=== PATIENT | female | born 1940 | race Caucasian/White ===

== ENCOUNTER → 2017-08-15 | Outpatient (CLI) | payer OTHER ==
[~2017-08-15] MED LIST: ACET-1757 PO; AMLO10TA2 PO; ASPI-496 PO; ATOR10TA9 PO; BISA10SU2 PR; CANA100T PO; CARV25TA12 PO; DOCU-131 PO; ENOX40SY4 SQ; EXEN2VIA SQ; GLIM2TAB2 PO; HYDR-3237 PO; INSU100V11 SQ-INSULIN; LOSA100T6 PO; METF10002 PO; METH5TAB6 PO; POLY17PO5 PO
== END | disposition home or self-care (01) ==
LOC: CVU 12:17
PROVIDERS: ATTEND Internal Medicine Cardiovascular Disease
DX: I65.23 Occlusion and stenosis of bilateral carotid arteries (principal); I87.2 Venous insufficiency (chronic) (peripheral); I10 Essential (primary) hypertension; E11.9 Type 2 diabetes mellitus without complications
CPT/HCPCS: 93880; 93970

== ENCOUNTER → 2019-08-17 | Outpatient (CLI) | payer OTHER ==
[~2019-08-17] MED LIST changes: +ABAL1.56 INJ; -ACET-1757 PO; +ACET-2065 PO; +ALPH300C PO; -AMLO10TA2 PO; +AMLO10TA8 PO; +ATOR20TA37 PO; -BISA10SU2 PR; +BISA10SU4 PR; +CHLO25TA PO; +CILO50TA PO; +DAPA10TA PO; -GLIM2TAB2 PO; +GLIM2TAB3 PO; +LOSA100T14 PO; -LOSA100T6 PO; +METF500T17 PO; +SEMA0.25 INJ
[2019-08-17 11:18] LABS: BASOPHILS % (AUTO) 0 % (0-1); EOSINOPHILS # (AUTO) 0.12 x10^3/uL (0-0.4); EOSINOPHILS % (AUTO) 2 % (1-7); LYMPHOCYTES # (AUTO) 1.22 x10^3/uL (1-3.4); LYMPHOCYTES % (AUTO) 17 % (22-44); MD NO; MEAN CORPUSCULAR HEMOGLOBIN 27.8 pg (27.0-34.8); MEAN CORPUSCULAR HGB CONC 32.6 g/dL (32.4-35.8); MEAN CORPUSCULAR VOLUME 85.3 fL (80-100); MEAN PLATELET VOLUME 7.8 fL (7.4-10.4); MONOCYTES # (AUTO) 0.24 x10^3/uL (0.2-0.8); MONOCYTES % (AUTO) 3 % (2-9); NEUTROPHILS # (AUTO) 5.55 x10^3/uL (1.8-6.8); NEUTROPHILS % (AUTO) 78 % (42-75); PLATELET COUNT 243 x10^3/uL (130-400); RED BLOOD COUNT 4.23 x10^6/uL (3.82-5.3); RED CELL DISTRIBUTION WIDTH 17.1 % (9.6-15.2)
[2019-08-17 11:24] LABS: MICROSCOPIC AUTO
[2019-08-17 11:30] LABS: ALANINE AMINOTRANSFERASE 22 U/L (12-78); ANION GAP 8 mmol/L (5-15); CALCIUM 9.2 mg/dL (8.5-10.1); CHLORIDE 103 mmol/L (98-107); CREATININE 0.66 mg/dL (0.55-1.02)
[2019-08-17 11:32] LABS: ALKALINE PHOSPHATASE 53 U/L (45-117); BILIRUBIN,TOTAL 0.5 mg/dL (0.2-1.0); TOTAL PROTEIN 8.1 g/dL (6.4-8.2)
[2019-08-17 11:36] LABS: INTERNATIONAL NORMALIZED RATIO 1.11 (0.93-1.1); PROTHROMBIN TIME 11.6 Seconds (9.6-11.5)
[2019-08-17 11:38] LABS: CULTURE INDICATED? YES
== END | disposition home or self-care (01) ==
LOC: STAR 10:04
PROVIDERS: ATTEND Neurological Surgery
DX: Z01.818 Encounter for other preprocedural examination (principal); M48.062 Spinal stenosis, lumbar region with neurogenic claudication; M43.06 Spondylolysis, lumbar region; M54.16 Radiculopathy, lumbar region; M54.5 Low back pain; E11.9 Type 2 diabetes mellitus without complications
CPT/HCPCS: 36415; 71046; 80053; 81001; 85025; 85610; 85730; 87086; 87147; 93005

== ENCOUNTER → 2019-08-20 | Outpatient (CLI) | payer OTHER ==
[~2019-08-20] MED LIST changes: +REGADENOSON 0.4 MG/5 ML SYRINGE ONE
== END | disposition home or self-care (01) ==
LOC: CFH 07:37
PROVIDERS: ATTEND Internal Medicine Cardiovascular Disease
DX: Z01.810 Encounter for preprocedural cardiovascular examination (principal); I10 Essential (primary) hypertension; E11.9 Type 2 diabetes mellitus without complications; R94.31 Abnormal electrocardiogram [ECG] [EKG]
CPT/HCPCS: 78452; 93017; A9502; J2785

== ENCOUNTER 2019-12-12 08:53 | Inpatient (IN) | payer MEDICARE, OTHER ==
[~2019-12-12] VITALS: Ht 165.1 cm; Wt 69.5 kg
[~2019-12-12 08:53] MED LIST changes: -ABAL1.56 INJ; +ABAL1.56 SC; +ALPR0.25 PO; +AMOX1TAB64 PO; +ASPI81TA45 PO; +ATOR-2 PO; +BISA10EN PR; +CALC500T29 PO; +CARV12.5 PO; +CLON0.1T12 PO; +CLOP75TA PO; +CLOP75TA52 PO; +DIPH50DI3 IVPush; +FAMO10TA77 PO; +FURO20TA3 PO; +GLIM2TAB PO; -GLIM2TAB3 PO; +GLIM2TAB7 PO; +HYDR-3240 PO; +INSU100V5 SQ-INSULIN; +ISOS30TA8 PO; +MAG355OR14 PO; +MAGN400O7 PO; +METH750T2 PO; +ONDA4DIS4 IVPush; +ONDA4TAB7 IVPush; -REGADENOSON 0.4 MG/5 ML SYRINGE ONE; -SEMA0.25 INJ; +SEMA0.25 SC; +SENN-92 PO; +ZOLP5TAB PO
--- NOTE | 2019-12-12 09:05 | NUR ---
PT BROUGHT IN BY MICHELE FROM HOME WITH CHIEF COMPLAINT OF SOB, WEAKNESS, COUGH FOR 2 WEEKS. PT DENIES CP, N/V, FEVER. PATIENT IS HARD OF HEARING BUT ALERT, ORIENTED, WARM AND DRY. MICHELE FOUND PT ROOM AIR SPO2 81%, PLACED ON 4 L NC. PPE IN PLACE
[2019-12-12] MEDS ORDERED: DAPA10TA PO (09:21)
[2019-12-12] MEDS ORDERED: SODIUM CHLORIDE FLUSH 10ML SYR IVF ONE ×2 (09:30→11:00)
[2019-12-12 09:54] LABS: BASOPHILS % (AUTO) 0 % (0-1); EOSINOPHILS % (AUTO) 0 % (1-7); LYMPHOCYTES # (AUTO) 0.29 x10^3/uL (1-3.4); LYMPHOCYTES % (AUTO) 4 % (22-44); MD NO; MEAN CORPUSCULAR HEMOGLOBIN 23.8 pg (27.0-34.8); MEAN CORPUSCULAR HGB CONC 31.8 g/dL (32.4-35.8); MEAN CORPUSCULAR VOLUME 74.9 fL (80-100); MEAN PLATELET VOLUME 8.8 fL (7.4-10.4); MONOCYTES # (AUTO) 0.39 x10^3/uL (0.2-0.8); MONOCYTES % (AUTO) 5 % (2-9); NEUTROPHILS # (AUTO) 6.77 x10^3/uL (1.8-6.8); NEUTROPHILS % (AUTO) 91 % (42-75); PLATELET COUNT 285 x10^3/uL (130-400); RED BLOOD COUNT 4.37 x10^6/uL (3.82-5.3); RED CELL DISTRIBUTION WIDTH 21.4 % (9.6-15.2)
[2019-12-12 10:04] LABS: ANION GAP 18 mmol/L (5-15); CALCIUM 8.3 mg/dL (8.5-10.1); CHLORIDE 98 mmol/L (98-107); CREATININE 1.24 mg/dL (0.55-1.02)
--- NOTE | 2019-12-12 10:07 | NUR ---
PT RESTING IN BED, NO COMPLAINTS OF DISCOMFORT. CALL LIGHT IN REACH
--- NOTE | 2019-12-12 10:42 | NUR ---
[id number] dr rasheed spoke with dr guerrero
[2019-12-12] MEDS ORDERED: SODIUM CHLORIDE 0.9% 1,000ML IVBOLUS ONE (11:00)
--- NOTE | 2019-12-12 11:06 | NUR ---
PT TO IMAGING
[2019-12-12] MEDS ORDERED: OMNIPAQUE 350 MG/ML, 100ML BOTTLE ONE (11:16)
--- NOTE | 2019-12-12 11:23 | NUR ---
ASSISTED AMBULATION TO BATHROOM
--- NOTE | 2019-12-12 11:35 | NUR ---
ATTEMPT TO CALL REPORT, RN NOT AVAILABLE
--- NOTE | 2019-12-12 11:46 | NUR ---
[facility] AT BEDSIDE
[2019-12-12 11:53] LABS: % IRON SATURATION 10 % (20-55); IRON LEVEL 32 mcg/dL (50-170); TOTAL IRON BINDING CAPACITY 310 mcg/dL (250-450)
--- NOTE | 2019-12-12 12:29 | NUR ---
REPORT CALLED TO ANA VEGA
[2019-12-12] MEDS: SODIUM CHLORIDE 0.9% 1,000 ML IV SCH (12:34)
[2019-12-12] MEDS ORDERED: ONDANSETRON 2MG/ML, 2ML IVPush PRN (13:00)
[2019-12-12] MEDS ORDERED: ACETAMINOPHEN 325 MG TABLET PO PRN (13:00)
[2019-12-12] MEDS: Enoxaparin 1 mg/kg protocol SQ SCH (13:00)
[2019-12-12] MEDS: INSULIN LISPRO 100 UNITS/ML, PEN SQ-INSULIN SCH ×3 (13:00→23:49)
[2019-12-12] MEDS ORDERED: morphine SULFATE 10 MG/ML, 1ML IVPush PRN (13:00)
[2019-12-12] MEDS ORDERED: ONDANSETRON ODT 4 MG PO PRN (13:00)
[2019-12-12] MEDS: DOXYCYCLINE 100MG TABLET PO SCH ×2 (13:24→20:12)
[2019-12-12] MEDS: CLOPIDOGREL 75 MG TABLET PO SCH (13:24)
[2019-12-12] MEDS: ASPIRIN 81 MG TABLET EC PO SCH (13:24)
[2019-12-12] MEDS: ISOSORBIDE MONONITRATE ER 30 MG TABLET PO SCH (13:24)
[2019-12-12] MEDS: ENOXAPARIN 60 MG/0.6 ML SQ SCH (13:24)
[2019-12-12 13:26] VITALS: BP 105/71
[2019-12-12 13:29] VITALS: BP 105/71
[2019-12-12] MEDS: CEFTRIAXONE PMX 1GM/50ML 50 ML IV SCH (13:52)
[2019-12-12 20:06] VITALS: BP 86/50
[2019-12-12] MEDS: ATORVASTATIN 20 MG TABLET PO SCH (20:12)
[2019-12-13] MEDS: Enoxaparin 1 mg/kg protocol SQ SCH ×2 (01:00→13:13)
[2019-12-13 01:12] VITALS: BP 113/67
[2019-12-13] MEDS: ENOXAPARIN 60 MG/0.6 ML SQ SCH ×2 (01:17→13:59)
[2019-12-13] MEDS: SODIUM CHLORIDE 0.9% 1,000 ML IV SCH (02:31)
[2019-12-13] MEDS: ASPIRIN 81 MG TABLET EC PO SCH (05:41)
[2019-12-13 05:48] LABS: BASOPHILS % (AUTO) 0 % (0-1); EOSINOPHILS % (AUTO) 0 % (1-7); LYMPHOCYTES # (AUTO) 0.84 x10^3/uL (1-3.4); LYMPHOCYTES % (AUTO) 9 % (22-44); MD NO; MEAN CORPUSCULAR HEMOGLOBIN 23.5 pg (27.0-34.8); MEAN CORPUSCULAR HGB CONC 31.6 g/dL (32.4-35.8); MEAN CORPUSCULAR VOLUME 74.3 fL (80-100); MEAN PLATELET VOLUME 9.1 fL (7.4-10.4); MONOCYTES # (AUTO) 0.72 x10^3/uL (0.2-0.8); MONOCYTES % (AUTO) 7 % (2-9); NEUTROPHILS # (AUTO) 8.28 x10^3/uL (1.8-6.8); NEUTROPHILS % (AUTO) 84 % (42-75); PLATELET COUNT 280 x10^3/uL (130-400); RED BLOOD COUNT 4.01 x10^6/uL (3.82-5.3)
[2019-12-13] MEDS: INSULIN LISPRO 100 UNITS/ML, PEN SQ-INSULIN SCH ×4 (05:52→21:18)
[2019-12-13 05:59] LABS: ALBUMIN 2.6 g/dL (3.4-5.0); ANION GAP 17 mmol/L (5-15); CALCIUM 7.8 mg/dL (8.5-10.1); CHLORIDE 117 mmol/L (98-107)
[2019-12-13 06:03] LABS: ALANINE AMINOTRANSFERASE 381 U/L (12-78); ALKALINE PHOSPHATASE 70 U/L (45-117); BILIRUBIN,TOTAL 0.6 mg/dL (0.2-1.0); TOTAL PROTEIN 6.6 g/dL (6.4-8.2)
[2019-12-13 07:17] VITALS: BP 111/71
[2019-12-13] MEDS: CLOPIDOGREL 75 MG TABLET PO SCH (09:50)
[2019-12-13] MEDS: DOXYCYCLINE 100MG TABLET PO SCH ×2 (09:50→20:01)
[2019-12-13] MEDS: IRON SUCROSE COMPLEX 100MG/5ML IV SCH (09:50)
[2019-12-13] MEDS: ISOSORBIDE MONONITRATE ER 30 MG TABLET PO SCH (09:50)
[2019-12-13 12:29] VITALS: BP 132/69
[2019-12-13] MEDS: CEFTRIAXONE PMX 1GM/50ML 50 ML IV SCH (14:00)
[2019-12-13] MEDS ORDERED: FUROSEMIDE 40 MG/4 ML IV ONE (15:30)
[2019-12-13 19:47] VITALS: BP 100/63
[2019-12-13] MEDS: ATORVASTATIN 20 MG TABLET PO SCH (20:00)
[2019-12-13] MEDS: GUAIFENESIN ER 600 MG TABLET PO SCH (20:01)
[2019-12-13] MEDS: INSULIN GLARGINE 100 UNITS/ML, PEN SQ-INSULIN SCH (21:19)
[2019-12-14 02:41] VITALS: BP 98/62
[2019-12-14] MEDS: ENOXAPARIN 60 MG/0.6 ML SQ SCH (02:45)
[2019-12-14] MEDS: INSULIN LISPRO 100 UNITS/ML, PEN SQ-INSULIN SCH ×4 (02:50→20:43)
[2019-12-14 05:50] LABS: BASOPHILS # (AUTO) 0.01 x10^3/uL (0-0.1); BASOPHILS % (AUTO) 0 % (0-1); EOSINOPHILS # (AUTO) 0.01 x10^3/uL (0-0.4); EOSINOPHILS % (AUTO) 0 % (1-7); LYMPHOCYTES # (AUTO) 1.26 x10^3/uL (1-3.4); LYMPHOCYTES % (AUTO) 12 % (22-44); MD NO; MEAN CORPUSCULAR HEMOGLOBIN 23.7 pg (27.0-34.8); MEAN CORPUSCULAR HGB CONC 31.8 g/dL (32.4-35.8); MEAN CORPUSCULAR VOLUME 74.4 fL (80-100); MEAN PLATELET VOLUME 8.9 fL (7.4-10.4); MONOCYTES # (AUTO) 0.86 x10^3/uL (0.2-0.8); MONOCYTES % (AUTO) 8 % (2-9); NEUTROPHILS # (AUTO) 8.29 x10^3/uL (1.8-6.8); NEUTROPHILS % (AUTO) 80 % (42-75); PLATELET COUNT 284 x10^3/uL (130-400); RED BLOOD COUNT 3.92 x10^6/uL (3.82-5.3); RED CELL DISTRIBUTION WIDTH 21.5 % (9.6-15.2)
[2019-12-14 05:56] LABS: ANION GAP 12 mmol/L (5-15); CALCIUM 7.8 mg/dL (8.5-10.1); CHLORIDE 105 mmol/L (98-107)
[2019-12-14 05:58] LABS: CREATININE 1.13 mg/dL (0.55-1.02)
[2019-12-14 08:35] VITALS: BP 103/63
[2019-12-14] MEDS: CLOPIDOGREL 75 MG TABLET PO SCH (08:57)
[2019-12-14] MEDS: DOXYCYCLINE 100MG TABLET PO SCH ×2 (08:57→20:42)
[2019-12-14] MEDS: GUAIFENESIN ER 600 MG TABLET PO SCH ×2 (08:57→20:42)
[2019-12-14] MEDS: ISOSORBIDE MONONITRATE ER 30 MG TABLET PO SCH (08:58)
[2019-12-14] MEDS: IRON SUCROSE COMPLEX 100MG/5ML IV SCH (08:58)
[2019-12-14] MEDS: ASPIRIN 81 MG TABLET EC PO SCH (09:05)
[2019-12-14] MEDS ORDERED: POTASSIUM CHLORIDE 20 MEQ TAB.ER.PRT PO ONE (13:30)
[2019-12-14 13:59] VITALS: BP 98/60
[2019-12-14] MEDS: CEFTRIAXONE PMX 1GM/50ML 50 ML IV SCH (14:24)
[2019-12-14 18:51] VITALS: BP 114/67
[2019-12-14] MEDS: ATORVASTATIN 20 MG TABLET PO SCH (20:42)
[2019-12-14] MEDS: INSULIN GLARGINE 100 UNITS/ML, PEN SQ-INSULIN SCH (20:43)
[2019-12-15 02:52] VITALS: BP 127/79
[2019-12-15 05:37] LABS: BASOPHILS # (AUTO) 0.01 x10^3/uL (0-0.1); BASOPHILS % (AUTO) 0 % (0-1); EOSINOPHILS # (AUTO) 0.03 x10^3/uL (0-0.4); EOSINOPHILS % (AUTO) 0 % (1-7); LYMPHOCYTES # (AUTO) 0.98 x10^3/uL (1-3.4); LYMPHOCYTES % (AUTO) 12 % (22-44); MD NO; MEAN CORPUSCULAR HEMOGLOBIN 23.7 pg (27.0-34.8); MEAN CORPUSCULAR HGB CONC 31.8 g/dL (32.4-35.8); MEAN CORPUSCULAR VOLUME 74.4 fL (80-100); MEAN PLATELET VOLUME 8.8 fL (7.4-10.4); MONOCYTES % (AUTO) 5 % (2-9); NEUTROPHILS # (AUTO) 7.14 x10^3/uL (1.8-6.8); NEUTROPHILS % (AUTO) 83 % (42-75); PLATELET COUNT 296 x10^3/uL (130-400); RED BLOOD COUNT 4.09 x10^6/uL (3.82-5.3)
[2019-12-15 05:52] LABS: ANION GAP 9 mmol/L (5-15); CALCIUM 8.1 mg/dL (8.5-10.1); CHLORIDE 105 mmol/L (98-107)
[2019-12-15 05:53] LABS: CREATININE 0.86 mg/dL (0.55-1.02)
[2019-12-15] MEDS: ASPIRIN 81 MG TABLET EC PO SCH (06:13)
[2019-12-15 07:35] VITALS: BP 136/84
[2019-12-15] MEDS: ENOXAPARIN 40 MG/0.4 ML SQ SCH (08:38)
[2019-12-15] MEDS: INSULIN LISPRO 100 UNITS/ML, PEN SQ-INSULIN SCH ×4 (08:39→21:31)
[2019-12-15] MEDS: CLOPIDOGREL 75 MG TABLET PO SCH (08:40)
[2019-12-15] MEDS: IRON SUCROSE COMPLEX 100MG/5ML IV SCH (08:40)
[2019-12-15] MEDS: GUAIFENESIN ER 600 MG TABLET PO SCH ×2 (08:40→21:29)
[2019-12-15] MEDS: DOXYCYCLINE 100MG TABLET PO SCH ×2 (08:40→21:29)
[2019-12-15] MEDS: ISOSORBIDE MONONITRATE ER 30 MG TABLET PO SCH (08:41)
[2019-12-15] MEDS ORDERED: GLIMEPIRIDE 1 MG TABLET PO SCH (09:30)
[2019-12-15] MEDS: GLIMEPIRIDE 1 MG TABLET PO SCH (11:43)
[2019-12-15 12:29] VITALS: BP 119/73
[2019-12-15] MEDS: CEFTRIAXONE PMX 1GM/50ML 50 ML IV SCH (14:49)
[2019-12-15 19:52] VITALS: BP 124/79
[2019-12-15] MEDS ORDERED: INSULIN GLARGINE 100 UNITS/ML, PEN SQ-INSULIN SCH (21:00)
[2019-12-15] MEDS: CARVEDILOL 12.5 MG TABLET PO SCH (21:29)
[2019-12-15] MEDS: DOCUSATE 100 MG CAPSULE PO PRN (21:29)
[2019-12-15] MEDS: ATORVASTATIN 20 MG TABLET PO SCH (21:29)
[2019-12-16 00:16] VITALS: BP 108/68
[2019-12-16 05:38] LABS: BASOPHILS # (AUTO) 0.05 x10^3/uL (0-0.1); BASOPHILS % (AUTO) 1 % (0-1); EOSINOPHILS # (AUTO) 0.08 x10^3/uL (0-0.4); EOSINOPHILS % (AUTO) 1 % (1-7); LYMPHOCYTES % (AUTO) 16 % (22-44); MD NO; MEAN CORPUSCULAR HEMOGLOBIN 23.5 pg (27.0-34.8); MEAN CORPUSCULAR HGB CONC 31.8 g/dL (32.4-35.8); MEAN PLATELET VOLUME 8.8 fL (7.4-10.4); MONOCYTES # (AUTO) 0.58 x10^3/uL (0.2-0.8); MONOCYTES % (AUTO) 8 % (2-9); NEUTROPHILS # (AUTO) 5.54 x10^3/uL (1.8-6.8); NEUTROPHILS % (AUTO) 74 % (42-75); PLATELET COUNT 272 x10^3/uL (130-400); RED BLOOD COUNT 4.11 x10^6/uL (3.82-5.3); RED CELL DISTRIBUTION WIDTH 21.4 % (9.6-15.2)
[2019-12-16 05:50] LABS: ANION GAP 9 mmol/L (5-15); CALCIUM 8.4 mg/dL (8.5-10.1); CHLORIDE 103 mmol/L (98-107); CREATININE 0.67 mg/dL (0.55-1.02)
[2019-12-16] MEDS: ASPIRIN 81 MG TABLET EC PO SCH (06:16)
[2019-12-16 07:35] VITALS: BP 108/70
[2019-12-16] MEDS: INSULIN LISPRO 100 UNITS/ML, PEN SQ-INSULIN SCH ×4 (07:39→20:35)
[2019-12-16] MEDS ORDERED: GLIMEPIRIDE 1 MG TABLET PO SCH (09:00)
[2019-12-16] MEDS: CLOPIDOGREL 75 MG TABLET PO SCH (09:04)
[2019-12-16] MEDS: GUAIFENESIN ER 600 MG TABLET PO SCH ×2 (09:04→20:33)
[2019-12-16] MEDS: ENOXAPARIN 40 MG/0.4 ML SQ SCH (09:04)
[2019-12-16] MEDS: CARVEDILOL 12.5 MG TABLET PO SCH ×2 (09:04→20:34)
[2019-12-16] MEDS: ISOSORBIDE MONONITRATE ER 30 MG TABLET PO SCH (09:04)
[2019-12-16] MEDS: INSULIN GLARGINE 100 UNITS/ML, PEN SQ-INSULIN SCH ×2 (09:04→20:35)
[2019-12-16] MEDS: GLIMEPIRIDE 1 MG TABLET PO SCH (09:05)
[2019-12-16] MEDS: DOXYCYCLINE 100MG TABLET PO SCH ×2 (09:05→20:34)
--- NOTE | 2019-12-16 13:22 | NUR ---
Pt will need home health care. Addendum: 12/16/19 at 1322 by Bala Hernandez PT Amended: Links added.
[2019-12-16 13:45] VITALS: BP 99/60
[2019-12-16] MEDS: CEFTRIAXONE PMX 1GM/50ML 50 ML IV SCH (14:24)
[2019-12-16] MEDS: POLYETHYLENE GLYCOL 17 GM PACKET PO PRN (16:38)
[2019-12-16 20:12] VITALS: BP 105/54
[2019-12-16] MEDS: ATORVASTATIN 20 MG TABLET PO SCH (20:34)
[2019-12-17 01:07] VITALS: BP 111/66
[2019-12-17 05:09] LABS: ANION GAP 9 mmol/L (5-15); BASOPHILS # (AUTO) 0.03 x10^3/uL (0-0.1); BASOPHILS % (AUTO) 0 % (0-1); CALCIUM 8.3 mg/dL (8.5-10.1); CHLORIDE 102 mmol/L (98-107); CREATININE 0.63 mg/dL (0.55-1.02); EOSINOPHILS # (AUTO) 0.12 x10^3/uL (0-0.4); EOSINOPHILS % (AUTO) 2 % (1-7); LYMPHOCYTES % (AUTO) 17 % (22-44); MD NO; MEAN CORPUSCULAR HEMOGLOBIN 23.6 pg (27.0-34.8); MEAN CORPUSCULAR HGB CONC 31.6 g/dL (32.4-35.8); MEAN CORPUSCULAR VOLUME 74.6 fL (80-100); MEAN PLATELET VOLUME 8.7 fL (7.4-10.4); MONOCYTES # (AUTO) 0.66 x10^3/uL (0.2-0.8); MONOCYTES % (AUTO) 9 % (2-9); NEUTROPHILS # (AUTO) 5.43 x10^3/uL (1.8-6.8); NEUTROPHILS % (AUTO) 72 % (42-75); PLATELET COUNT 266 x10^3/uL (130-400); RED BLOOD COUNT 3.82 x10^6/uL (3.82-5.3); RED CELL DISTRIBUTION WIDTH 21.9 % (9.6-15.2)
[2019-12-17] MEDS: ASPIRIN 81 MG TABLET EC PO SCH (05:11)
[2019-12-17 07:20] VITALS: BP 118/73
[2019-12-17] MEDS: GUAIFENESIN ER 600 MG TABLET PO SCH ×2 (08:38→20:49)
[2019-12-17] MEDS: CLOPIDOGREL 75 MG TABLET PO SCH (08:38)
[2019-12-17] MEDS: GLIMEPIRIDE 1 MG TABLET PO SCH (08:38)
[2019-12-17] MEDS: ISOSORBIDE MONONITRATE ER 30 MG TABLET PO SCH (08:38)
[2019-12-17] MEDS: DOXYCYCLINE 100MG TABLET PO SCH ×2 (08:38→20:49)
[2019-12-17] MEDS: CARVEDILOL 12.5 MG TABLET PO SCH ×2 (08:38→20:49)
[2019-12-17] MEDS: INSULIN GLARGINE 100 UNITS/ML, PEN SQ-INSULIN SCH ×2 (08:39→20:50)
[2019-12-17] MEDS: INSULIN LISPRO 100 UNITS/ML, PEN SQ-INSULIN SCH ×4 (08:39→20:50)
[2019-12-17] MEDS: ENOXAPARIN 40 MG/0.4 ML SQ SCH (08:39)
[2019-12-17] MEDS ORDERED: FERROUS SULFATE 325 MG TABLET PO SCH (09:00)
[2019-12-17] MEDS: DOCUSATE 100 MG CAPSULE PO PRN (09:48)
[2019-12-17] MEDS: POLYETHYLENE GLYCOL 17 GM PACKET PO PRN (09:48)
[2019-12-17 13:45] VITALS: BP 101/60
[2019-12-17] MEDS: CEFTRIAXONE PMX 1GM/50ML 50 ML IV SCH (15:10)
[2019-12-17 19:53] VITALS: BP 112/71
[2019-12-17] MEDS: ATORVASTATIN 20 MG TABLET PO SCH (20:49)
[2019-12-18 00:10] VITALS: BP 106/63
[2019-12-18] MEDS: MELATONIN 5 MG TABLET PO SCH ×2 (01:12→20:27)
[2019-12-18] MEDS: ASPIRIN 81 MG TABLET EC PO SCH (05:40)
[2019-12-18 07:40] VITALS: BP 115/73
[2019-12-18] MEDS: ENOXAPARIN 40 MG/0.4 ML SQ SCH (07:52)
[2019-12-18] MEDS: CARVEDILOL 12.5 MG TABLET PO SCH ×2 (07:53→20:28)
[2019-12-18] MEDS: DOXYCYCLINE 100MG TABLET PO SCH ×2 (07:53→20:27)
[2019-12-18] MEDS: GLIMEPIRIDE 1 MG TABLET PO SCH (07:53)
[2019-12-18] MEDS: ISOSORBIDE MONONITRATE ER 30 MG TABLET PO SCH (07:53)
[2019-12-18] MEDS: INSULIN LISPRO 100 UNITS/ML, PEN SQ-INSULIN SCH ×4 (07:53→20:29)
[2019-12-18] MEDS: CLOPIDOGREL 75 MG TABLET PO SCH (07:53)
[2019-12-18] MEDS: INSULIN GLARGINE 100 UNITS/ML, PEN SQ-INSULIN SCH ×2 (07:54→20:29)
[2019-12-18] MEDS: DOCUSATE 100 MG CAPSULE PO PRN (07:56)
[2019-12-18] MEDS: GUAIFENESIN ER 600 MG TABLET PO SCH ×2 (07:56→20:27)
[2019-12-18 13:54] VITALS: BP 104/65
[2019-12-18] MEDS: CEFTRIAXONE PMX 1GM/50ML 50 ML IV SCH (15:24)
[2019-12-18 19:58] VITALS: BP 153/66
[2019-12-18] MEDS: ATORVASTATIN 20 MG TABLET PO SCH (20:28)
[2019-12-19 01:11] VITALS: BP 125/78
[2019-12-19] MEDS: ASPIRIN 81 MG TABLET EC PO SCH (05:00)
[2019-12-19 06:49] VITALS: BP 107/60
[2019-12-19] MEDS: INSULIN LISPRO 100 UNITS/ML, PEN SQ-INSULIN SCH ×4 (08:30→21:53)
[2019-12-19] MEDS: GUAIFENESIN ER 600 MG TABLET PO SCH ×2 (08:31→21:37)
[2019-12-19] MEDS: CARVEDILOL 12.5 MG TABLET PO SCH ×2 (08:31→21:37)
[2019-12-19] MEDS: ENOXAPARIN 40 MG/0.4 ML SQ SCH (08:31)
[2019-12-19] MEDS: INSULIN GLARGINE 100 UNITS/ML, PEN SQ-INSULIN SCH ×2 (08:31→21:54)
[2019-12-19] MEDS: CLOPIDOGREL 75 MG TABLET PO SCH (08:31)
[2019-12-19] MEDS: FERROUS SULFATE 325 MG TABLET PO SCH (08:32)
[2019-12-19] MEDS: DOXYCYCLINE 100MG TABLET PO SCH (08:32)
[2019-12-19] MEDS: ISOSORBIDE MONONITRATE ER 30 MG TABLET PO SCH (08:32)
[2019-12-19] MEDS: GLIMEPIRIDE 1 MG TABLET PO SCH (08:32)
[2019-12-19] MEDS ORDERED: CEFTRIAXONE PMX 1GM/50ML 50 ML IV SCH (13:00)
[2019-12-19 13:27] VITALS: BP 98/60
[2019-12-19] MEDS ORDERED: DOXYCYCLINE 100MG TABLET PO SCH (21:00)
[2019-12-19 21:27] VITALS: BP 111/65
[2019-12-19] MEDS: MELATONIN 5 MG TABLET PO SCH (21:37)
[2019-12-19] MEDS: ATORVASTATIN 20 MG TABLET PO SCH (21:38)
[2019-12-20 01:37] VITALS: BP 97/60
[2019-12-20] MEDS: ASPIRIN 81 MG TABLET EC PO SCH (05:24)
[2019-12-20 05:45] LABS: MEAN CORPUSCULAR HGB CONC 31.9 g/dL (32.4-35.8); MEAN CORPUSCULAR VOLUME 75.3 fL (80-100); MEAN PLATELET VOLUME 8.6 fL (7.4-10.4); PLATELET COUNT 277 x10^3/uL (130-400); RED BLOOD COUNT 3.78 x10^6/uL (3.82-5.3); RED CELL DISTRIBUTION WIDTH 22.5 % (9.6-15.2)
[2019-12-20 05:51] LABS: ANION GAP 6 mmol/L (5-15); CALCIUM 9.1 mg/dL (8.5-10.1); CHLORIDE 105 mmol/L (98-107); CREATININE 0.67 mg/dL (0.55-1.02)
[2019-12-20 06:16] LABS: ANISOCYTOSIS 1+; BASOPHILS # (AUTO) 0.07 x10^3/uL (0-0.1); BASOPHILS % (AUTO) 1 % (0-1); EOSINOPHILS # (AUTO) 0.15 x10^3/uL (0-0.4); EOSINOPHILS % (AUTO) 2 % (1-7); HYPOCHROMIA 1+; LYMPHOCYTES % (AUTO) 26 % (22-44); MD MORPH REVIEW ONLY; MICROCYTOSIS 1+; MONOCYTES # (AUTO) 0.57 x10^3/uL (0.2-0.8); MONOCYTES % (AUTO) 9 % (2-9); NEUTROPHILS # (AUTO) 3.86 x10^3/uL (1.8-6.8); NEUTROPHILS % (AUTO) 62 % (42-75); POLYCHROMASIA 1+
[2019-12-20 06:18] LABS: <PLATELET ESTIMATE> ADEQUATE; <PLT MORPHOLOGY> NORMAL PLT MORPH
[2019-12-20] MEDS: INSULIN LISPRO 100 UNITS/ML, PEN SQ-INSULIN SCH ×4 (06:51→19:49)
[2019-12-20 08:58] VITALS: BP 122/70
[2019-12-20] MEDS: INSULIN GLARGINE 100 UNITS/ML, PEN SQ-INSULIN SCH ×2 (09:02→19:49)
[2019-12-20] MEDS: ENOXAPARIN 40 MG/0.4 ML SQ SCH (09:02)
[2019-12-20] MEDS: GLIMEPIRIDE 1 MG TABLET PO SCH (09:03)
[2019-12-20] MEDS: CARVEDILOL 12.5 MG TABLET PO SCH ×2 (09:03→19:50)
[2019-12-20] MEDS: GUAIFENESIN ER 600 MG TABLET PO SCH ×2 (09:03→19:49)
[2019-12-20] MEDS: CLOPIDOGREL 75 MG TABLET PO SCH (09:03)
[2019-12-20] MEDS: POTASSIUM CHLORIDE 20 MEQ TAB.ER.PRT PO SCH (09:03)
[2019-12-20] MEDS: ISOSORBIDE MONONITRATE ER 30 MG TABLET PO SCH (09:03)
[2019-12-20] MEDS ORDERED: ENOX40SY4 SQ (13:01)
[2019-12-20] MEDS ORDERED: ASPI81TA45 PO (13:01)
[2019-12-20] MEDS ORDERED: INSU100I11 SQ-INSULIN (13:01)
[2019-12-20] MEDS ORDERED: POTA20TA6 PO (13:01)
[2019-12-20] MEDS ORDERED: INSU100I13 SQ-INSULIN (13:01)
[2019-12-20 15:55] VITALS: BP 137/76
[2019-12-20] MEDS: FUROSEMIDE 20 MG TABLET PO SCH (16:38)
[2019-12-20 18:59] VITALS: BP 102/60
[2019-12-20] MEDS: ATORVASTATIN 20 MG TABLET PO SCH (19:49)
[2019-12-20] MEDS: MELATONIN 5 MG TABLET PO SCH (19:50)
[2019-12-21 02:57] VITALS: BP 110/67
[2019-12-21] MEDS: ASPIRIN 81 MG TABLET EC PO SCH (06:00)
[2019-12-21] MEDS: INSULIN LISPRO 100 UNITS/ML, PEN SQ-INSULIN SCH ×3 (07:00→16:44)
[2019-12-21 07:03] VITALS: BP 124/78
[2019-12-21] MEDS: GLIMEPIRIDE 1 MG TABLET PO SCH (09:19)
[2019-12-21] MEDS: ISOSORBIDE MONONITRATE ER 30 MG TABLET PO SCH (09:19)
[2019-12-21] MEDS: POTASSIUM CHLORIDE 20 MEQ TAB.ER.PRT PO SCH (09:20)
[2019-12-21] MEDS: FUROSEMIDE 20 MG TABLET PO SCH ×2 (09:20→16:43)
[2019-12-21] MEDS: FERROUS SULFATE 325 MG TABLET PO SCH (09:20)
[2019-12-21] MEDS: CARVEDILOL 12.5 MG TABLET PO SCH (09:20)
[2019-12-21] MEDS: GUAIFENESIN ER 600 MG TABLET PO SCH (09:20)
[2019-12-21] MEDS: CLOPIDOGREL 75 MG TABLET PO SCH (09:20)
[2019-12-21] MEDS: ENOXAPARIN 40 MG/0.4 ML SQ SCH (09:21)
[2019-12-21] MEDS: INSULIN GLARGINE 100 UNITS/ML, PEN SQ-INSULIN SCH (09:22)
[2019-12-21 12:32] VITALS: BP 104/64
== END 2019-12-21 18:16 | DRG 177 ==
LOC: ED 10:36 → EDIP 10:52 → 5SO 12:38 → 3N 12-20 17:13
PROVIDERS: ADMIT Family Medicine; ATTEND Internal Medicine
DX: J15.6 Pneumonia due to other Gram-negative bacteria (principal); J96.01 Acute respiratory failure with hypoxia; I21.4 Non-ST elevation (NSTEMI) myocardial infarction; I50.23 Acute on chronic systolic (congestive) heart failure; N17.9 Acute kidney failure, unspecified; E87.2 Acidosis; Z66 Do not resuscitate; E11.65 Type 2 diabetes mellitus with hyperglycemia; D50.9 Iron deficiency anemia, unspecified; I25.10 Atherosclerotic heart disease of native coronary artery without angina pectoris; E03.9 Hypothyroidism, unspecified; Z98.890 Other specified postprocedural states; Z83.3 Family history of diabetes mellitus; Z82.49 Family history of ischemic heart disease and other diseases of the circulatory system; Z82.5 Family history of asthma and other chronic lower respiratory diseases
CPT/HCPCS: 36415; 71045; 71275; 80048; 80053; 82040; 82962; 83036; 83540; 83550; 83605; 84145; 84484; 85025; 87040; 87070; 87077; 87186; 87205; 87486; 87581; 87633; 87798; 93005; 93306; 99285; G0378; J0696; J1650; J1756; J1940; J2405; Q9967; J1815; J7030

== ENCOUNTER 2020-01-12 15:25 | Inpatient (IN) | payer MEDICARE, OTHER ==
[~2020-01-12] VITALS: Ht 154.9 cm; Wt 65.4 kg
[~2020-01-12 15:25] MED LIST changes: +INSU100I11 SQ-INSULIN; +INSU100I13 SQ-INSULIN; +POTA20TA6 PO
--- NOTE | 2020-01-12 15:34 | NUR ---
SILVIA MIDDLETON SWITCHED PT FROM NONREBREATHER TO NC. PT CURRNTLY ON 4L NC SATING 94%.
[2020-01-12] MEDS ORDERED: EMPA25TA PO (15:41)
[2020-01-12] MEDS ORDERED: GLIM4TAB8 PO (15:43)
[2020-01-12] MEDS ORDERED: SODIUM CHLORIDE FLUSH 10ML SYR IVF ONE (16:00)
[2020-01-12] MEDS ORDERED: ASPIRIN 81 MG TABLET CHEW PO ONE (16:00)
[2020-01-12] MEDS ORDERED: ASPIRIN 81 MG TABLET CHEW ONE (16:02)
--- NOTE | 2020-01-12 16:03 | NUR ---
TASK RN: PT YELLING "HELP ME, I CANT BREATH" THIS RN AND JIN RN, ASSISTED PT WITH REPOSITIONING. PT SITTING UP. SATS 93%. PORTABLE CXR IN PROGRESS.
--- NOTE | 2020-01-12 16:05 | NUR ---
PT MEDICATED PER EMAR.
--- NOTE | 2020-01-12 16:30 | NUR ---
RN INFORMED MD THAT PT IS STILL BREATHING 30-31 BPM. RN ASKED MD IF AN ABG CAN BE OBTAINED. OKAY BY YOUSUF.
[2020-01-12 16:43] LABS: BASOPHILS # (AUTO) 0.04 x10^3/uL (0-0.1); BASOPHILS % (AUTO) 0 % (0-1); EOSINOPHILS # (AUTO) 0.01 x10^3/uL (0-0.4); EOSINOPHILS % (AUTO) 0 % (1-7); LYMPHOCYTES # (AUTO) 1.22 x10^3/uL (1-3.4); LYMPHOCYTES % (AUTO) 14 % (22-44); MD MORPH REVIEW ONLY; MEAN CORPUSCULAR HEMOGLOBIN 24.9 pg (27.0-34.8); MEAN CORPUSCULAR VOLUME 80.4 fL (80-100); MEAN PLATELET VOLUME 9.3 fL (7.4-10.4); MONOCYTES # (AUTO) 0.53 x10^3/uL (0.2-0.8); MONOCYTES % (AUTO) 6 % (2-9); NEUTROPHILS # (AUTO) 7.03 x10^3/uL (1.8-6.8); NEUTROPHILS % (AUTO) 80 % (42-75); PLATELET COUNT 334 x10^3/uL (130-400); RED BLOOD COUNT 4.85 x10^6/uL (3.82-5.3); RED CELL DISTRIBUTION WIDTH 28.6 % (9.6-15.2)
[2020-01-12 16:45] LABS: ALBUMIN 3.7 g/dL (3.4-5.0); CALCIUM 9.7 mg/dL (8.5-10.1); CHLORIDE 110 mmol/L (98-107); CREATININE 1.09 mg/dL (0.55-1.02)
[2020-01-12 16:49] LABS: TROPONIN I 0.104 ng/mL (0.000-0.045)
[2020-01-12 16:56] LABS: ANION GAP 17 mmol/L (5-15)
[2020-01-12 17:04] LABS: ANISOCYTOSIS 2+
[2020-01-12 17:05] LABS: HYPOCHROMIA 1+; OVALOCYTES 1+; POLYCHROMASIA 1+; TEAR DROPS 1+
[2020-01-12 17:06] LABS: <PLATELET ESTIMATE> ADEQUATE; <PLT MORPHOLOGY> NORMAL PLT MORPH
[2020-01-12] MEDS ORDERED: FUROSEMIDE 20 MG/2 ML ONE (17:06)
[2020-01-12 17:07] LABS: MICROCYTOSIS 1+
--- NOTE | 2020-01-12 17:07 | NUR ---
CRITICAL PH REPORTED TO MD. BONNER TO ADD INTERVENTIONS.
[2020-01-12] MEDS ORDERED: NITROGLYCERIN OINT 2%, 1GM TP ONE ×2 (17:12→17:30)
--- NOTE | 2020-01-12 17:12 | NUR ---
PT MEDICATED PER EMAR.
[2020-01-12] MEDS ORDERED: FUROSEMIDE 20 MG/2 ML IV ONE (17:30)
--- NOTE | 2020-01-12 17:32 | NUR ---
RN WENT WITH PROCESSING CLERK TO CTA SCAN. PT AND RN RETURNED.
[2020-01-12] MEDS ORDERED: OMNIPAQUE 350 MG/ML, 75ML BOTTLE ONE (17:43)
--- NOTE | 2020-01-12 17:59 | NUR ---
PT REQUESTING TO SIT UP. RN HELPED PT SIT ON ON [facility].
--- NOTE | 2020-01-12 18:43 | NUR ---
REPORT TO SILVIA SIFUENTES TO ASSUME PRIMARY CARE OF PT.
--- NOTE | 2020-01-12 18:45 | NUR ---
WANTS TO REPEAT BLOOD GAS PRIOR TO DECIDING WHAT FLOOR PT WILL BE ADMITTED TO.
--- NOTE | 2020-01-12 18:57 | NUR ---
PT RESTING ON GURNEY. TACHYPNEIC, OTHER VS WDL. NADN. AWAITING ADMIT.
[2020-01-12] MEDS ORDERED: ONDANSETRON 2MG/ML, 2ML IVPush PRN (19:00)
[2020-01-12] MEDS ORDERED: ACETAMINOPHEN 325 MG TABLET PO PRN (19:00)
[2020-01-12] MEDS ORDERED: hydrALAzine 20 MG/ML, 1ML IVPush PRN (19:00)
--- NOTE | 2020-01-12 19:48 | NUR ---
PT RESTING ON GURNEY. TACHYPNEIC, OTHER VS WDL. NADN. AWAITING ADMIT.
[2020-01-12] MEDS ORDERED: METHOCARBAMOL 750 MG TABLET PO PRN (20:00)
[2020-01-12] MEDS ORDERED: ZOLPIDEM 5MG TABLET PO PRN (20:00)
--- NOTE | 2020-01-12 20:40 | NUR ---
PT RESTING ON GURNEY. TACHYPNEIC, OTHER VS WDL. NADN. AWAITING ADMIT.
--- NOTE | 2020-01-12 20:47 | NUR ---
SEAN SANTIAGO FROM PHARMACY.
[2020-01-12] MEDS: INSULIN LISPRO 100 UNITS/ML, PEN SQ-INSULIN SCH (20:56)
[2020-01-12] MEDS ORDERED: ATORVASTATIN 80 MG TABLET PO SCH (21:00)
[2020-01-12] MEDS ORDERED: FUROSEMIDE 20 MG TABLET PO SCH (21:00)
[2020-01-12] MEDS ORDERED: CARVEDILOL 25 MG TABLET PO SCH (21:00)
[2020-01-12] MEDS: CARVEDILOL 12.5 MG TABLET PO SCH (21:09)
--- NOTE | 2020-01-12 21:12 | NUR ---
PT MEDICATED PER EMAR. RESTING ON Mobiveil W/ CALL LIGHT IN REACH. NADN. SIDE RAILS UPX2.
[2020-01-12 21:27] VITALS: BP 107/62
[2020-01-13 05:39] LABS: RED CELL DISTRIBUTION WIDTH 27.4 % (9.6-15.2)
[2020-01-13 05:40] LABS: MEAN CORPUSCULAR HEMOGLOBIN 24.5 pg (27.0-34.8); MEAN CORPUSCULAR VOLUME 79.1 fL (80-100); RED BLOOD COUNT 4.42 x10^6/uL (3.82-5.3)
[2020-01-13 05:46] LABS: ANION GAP 15 mmol/L (5-15); CALCIUM 9.3 mg/dL (8.5-10.1); CHLORIDE 109 mmol/L (98-107); CREATININE 1.28 mg/dL (0.55-1.02)
[2020-01-13 06:37] LABS: MEAN PLATELET VOLUME 9.1 fL (7.4-10.4); PLATELET COUNT 194 x10^3/uL (130-400)
[2020-01-13 06:41] LABS: BASOPHILS # (AUTO) 0.01 x10^3/uL (0-0.1); BASOPHILS % (AUTO) 0 % (0-1); EOSINOPHILS % (AUTO) 0 % (1-7); LYMPHOCYTES # (AUTO) 0.72 x10^3/uL (1-3.4); LYMPHOCYTES % (AUTO) 9 % (22-44); MD SCAN; MONOCYTES # (AUTO) 0.44 x10^3/uL (0.2-0.8); MONOCYTES % (AUTO) 6 % (2-9); NEUTROPHILS # (AUTO) 6.42 x10^3/uL (1.8-6.8); NEUTROPHILS % (AUTO) 85 % (42-75)
[2020-01-13] MEDS: INSULIN LISPRO 100 UNITS/ML, PEN SQ-INSULIN SCH ×4 (07:00→21:40)
[2020-01-13] MEDS: ISOSORBIDE MONONITRATE ER 30 MG TABLET PO SCH (07:15)
[2020-01-13] MEDS: CARVEDILOL 12.5 MG TABLET PO SCH ×2 (07:15→21:08)
[2020-01-13] MEDS: FUROSEMIDE 20 MG/2 ML IV SCH ×4 (07:15→17:21)
[2020-01-13] MEDS ORDERED: MAALOX/HYOSCYAMINE/LIDOCAINE 45 ML BTL PO ONE (09:00)
[2020-01-13] MEDS ORDERED: LOSARTAN 100 MG TAB PO SCH (09:00)
[2020-01-13] MEDS ORDERED: LOSARTAN 25MG TABLET PO SCH (09:00)
[2020-01-13] MEDS: CLOPIDOGREL 75 MG TABLET PO SCH (09:13)
[2020-01-13] MEDS ORDERED: HEPARIN 25,000 UNITS/250ML PMX 250 ML ONE (10:39)
[2020-01-13] MEDS ORDERED: HEPARIN 5,000 UNITS/ML, 1ML ONE (10:50)
[2020-01-13] MEDS ORDERED: PHENYLEPHRINE 50 MG in SODIUM CHLORIDE 0.9% 245 ML IV PRN (11:00)
[2020-01-13 11:28] LABS: MICROSCOPIC INDICATED
[2020-01-13 11:29] LABS: CULTURE INDICATED? NO
[2020-01-13] MEDS ORDERED: HEPARIN 5,000 UNITS/ML, 1ML IV ONE (11:30)
[2020-01-13] MEDS: HEPARIN 25,000 UNITS/250ML PMX 250 ML IV PRN (11:30)
[2020-01-13] MEDS: METOLAZONE 5 MG TABLET PO SCH (17:21)
[2020-01-13] MEDS ORDERED: ATORVASTATIN 80 MG TABLET PO SCH (21:00)
[2020-01-13] MEDS: HEPARIN 5,000 UNITS/ML, 1ML IV PRN (21:29)
[2020-01-14 03:53] LABS: ALBUMIN 2.9 g/dL (3.4-5.0); ANION GAP 10 mmol/L (5-15); CALCIUM 8.8 mg/dL (8.5-10.1); CHLORIDE 110 mmol/L (98-107)
[2020-01-14 03:54] LABS: CREATININE 1.15 mg/dL (0.55-1.02)
[2020-01-14] MEDS: HEPARIN 5,000 UNITS/ML, 1ML IV PRN ×2 (04:19→12:52)
[2020-01-14] MEDS: INSULIN LISPRO 100 UNITS/ML, PEN SQ-INSULIN SCH ×2 (06:32→12:33)
[2020-01-14] MEDS ORDERED: GLIMEPIRIDE 4 MG TABLET PO SCH (09:00)
[2020-01-14] MEDS: METOLAZONE 5 MG TABLET PO SCH (09:23)
[2020-01-14] MEDS: CLOPIDOGREL 75 MG TABLET PO SCH (09:23)
[2020-01-14] MEDS: CARVEDILOL 12.5 MG TABLET PO SCH (09:23)
[2020-01-14] MEDS: FUROSEMIDE 20 MG/2 ML IV SCH (09:23)
[2020-01-14] MEDS: ISOSORBIDE MONONITRATE ER 30 MG TABLET PO SCH (12:33)
[2020-01-14] MEDS: HEPARIN 25,000 UNITS/250ML PMX 250 ML IV PRN (12:52)
== END 2020-01-14 15:27 | disposition hospice, inpatient (51) | DRG 280 ==
LOC: ED 15:56 → EDIP 18:06 → ICU 22:15
PROVIDERS: ADMIT Internal Medicine; ATTEND Internal Medicine
DX: I21.4 Non-ST elevation (NSTEMI) myocardial infarction (principal); J96.21 Acute and chronic respiratory failure with hypoxia; I50.43 Acute on chronic combined systolic (congestive) and diastolic (congestive) heart failure; I13.0 Hypertensive heart and chronic kidney disease with heart failure and stage 1 through stage 4 chronic kidney disease, or unspecified chronic kidney disease; E11.51 Type 2 diabetes mellitus with diabetic peripheral angiopathy without gangrene; E11.22 Type 2 diabetes mellitus with diabetic chronic kidney disease; E78.5 Hyperlipidemia, unspecified; I25.10 Atherosclerotic heart disease of native coronary artery without angina pectoris; I25.2 Old myocardial infarction; Z20.828 Contact with and (suspected) exposure to other viral communicable diseases; N18.9 Chronic kidney disease, unspecified; Z51.5 Encounter for palliative care; Z66 Do not resuscitate; Z79.02 Long term (current) use of antithrombotics/antiplatelets; Z79.899 Other long term (current) drug therapy; Z87.891 Personal history of nicotine dependence; Z90.710 Acquired absence of both cervix and uterus
CPT/HCPCS: 36415; 36600; 71045; 71275; 80048; 81001; 82040; 82803; 82962; 83880; 84145; 84484; 85025; 85379; 85520; 87081; 93005; 96374; 99291; G0378; J1644; Q9967; J1815; J1940; J2370; J7050; U0001